=== PATIENT | female | born 1975 | race Caucasian/White ===

== ENCOUNTER 2023-09-22 09:33 | Emergency (ER) | payer SELFPAY ==
[~2023-09-22] VITALS: Ht 157.5 cm; Wt 60.4 kg
[2023-09-22 09:36] VITALS: BP 147/89; PULSE 92; RESP 16; TEMP 97.6; O2SAT 98
[2023-09-22] MEDS ORDERED: CEPH-585 PO (10:38)
[2023-09-22] MEDS ORDERED: SULF1TAB49 PO (10:38)
[2023-09-22] MEDS ORDERED: VALA100031 PO (10:38)
[2023-09-22] MEDS: sulfamethoxazole/trimethoprim DS (800/160mg) tablet PO ONE (10:45)
[2023-09-22] MEDS: CefTRIAXone 1000mg IM Kit (w/lidocaine diluent) IM ONE (10:46)
[2023-09-22] MEDS: valacyclovir 500mg tablet PO ONE (11:00)
== END 2023-09-22 11:01 | disposition home or self-care (01) ==
LOC: ER 09:34
DX: S61.258A Open bite of other finger without damage to nail, initial encounter (principal); L03.113 Cellulitis of right upper limb; W50.3XXA Accidental bite by another person, initial encounter; Y93.89 Activity, other specified; Y92.89 Other specified places as the place of occurrence of the external cause; Y99.8 Other external cause status
CPT/HCPCS: 96372; 99283; J0696

== ENCOUNTER 2023-11-05 08:27 | Emergency (ER) | payer OTHER ==
[~2023-11-05] VITALS: Ht 167.6 cm; Wt 64.5 kg
[~2023-11-05 08:27] MED LIST: VALA100031 PO
[2023-11-05 08:31] VITALS: BP 138/94; PULSE 96; RESP 16; TEMP 98.9; O2SAT 99
[2023-11-05] MEDS: TETanus/Pertussis (Acell)/Diphther VAC/PF (Tdap-Adult) 0.5ml syringe IMVAC ONE (10:10)
[2023-11-05] MEDS: CefTRIAXone 1000mg IM Kit (w/lidocaine diluent) IM ONE (10:10)
[2023-11-05] MEDS ORDERED: CEPH-585 PO (12:11)
== END 2023-11-05 13:02 | disposition home or self-care (01) ==
LOC: ER 08:28
DX: S61.402A Unspecified open wound of left hand, initial encounter (principal); F17.200 Nicotine dependence, unspecified, uncomplicated; Z79.2 Long term (current) use of antibiotics; X58.XXXA Exposure to other specified factors, initial encounter; Y93.89 Activity, other specified; Y92.89 Other specified places as the place of occurrence of the external cause; Y99.8 Other external cause status
CPT/HCPCS: 90471; 90715; 96372; 99284; J0696